=== PATIENT | female | born 1970 | race Hispanic/Latino ===

== ENCOUNTER 2021-07-31 10:58 | Outpatient (CLI) | payer SELFPAY ==
[2021-08-01 14:12] LABS: SARS-CoV-2 PCR by NAA Not Detected (NotDetected)
== END 2021-07-31 10:59 | disposition home or self-care (01) ==
LOC: CSHLAB 10:58
PROVIDERS: ATTEND Urology
DX: Z20.822 Contact with and (suspected) exposure to COVID-19 (principal)
CPT/HCPCS: U0003; U0005

== ENCOUNTER 2021-08-05 09:37 | Day surgery (SDC) | payer OTHER ==
[2021-08-03 14:47] VITALS: BMI 29.2
[2021-08-05] MEDS ORDERED: Iopamidol 30 ML ONE (10:49)
[2021-08-05] MEDS ORDERED: Lidocaine 1% MPF 2 ML VIAL ONE (10:52)
[2021-08-05] MEDS ORDERED: PROPOFOL 20 ML ONE (10:57)
[2021-08-05] MEDS ORDERED: Fentanyl 100 MCG/2 ML VIAL ONE (10:57)
[2021-08-05] MEDS ORDERED: Lidocaine 1% PF 5 ML VIAL ONE (10:59)
[2021-08-05] MEDS ORDERED: Levofloxacin 500 mg/D5W 100 ml Premix Bag ONE (12:24)
[2021-08-05] MEDS ORDERED: Ondansetron PF 4 MG/2 ML Vial ONE ×2 (12:43→14:07)
[2021-08-05] MEDS ORDERED: Dexamethasone 20 MG/5 ML VIAL ONE (12:43)
[2021-08-05] MEDS ORDERED: PHENYLEPHRINE-NS 100 MCG/ML 10 ML SYRINGE ONE (12:48)
[2021-08-05] MEDS ORDERED: ePHEDrine Sulfate 50 MG/10 ML VIAL ONE (13:11)
== END 2021-08-05 15:05 | disposition home or self-care (01) ==
LOC: CSHSDC 09:37
PROVIDERS: ATTEND Urology
PROC: 0T788DZ Dilation of Bilateral Ureters with Intraluminal Device, Via Natural or Artificial Opening Endoscopic (ICD-10-PCS; principal; 2021-08-05)
DX: N13.1 Hydronephrosis with ureteral stricture, not elsewhere classified (principal)
CPT/HCPCS: C2625; J1100; J1956; J2405; J2704; J3010; Q9967